=== PATIENT | male | born 1970 | race Caucasian/White ===

== ENCOUNTER 2019-03-31 22:47 | Emergency (ER) | payer SELFPAY ==
[2019-03-31 22:58] VITALS: TEMP 98.2; BMI 26.9
[2019-03-31] MEDS ORDERED: SODIUM CHLORIDE 0.9% 500 ML INFUS.BAG IV ONE (23:16)
[2019-03-31] MEDS ORDERED: ONDANSETRON 4 MG/2 ML VIAL IVPUSH ONE (23:16)
[2019-03-31] MEDS ORDERED: FAMOTIDINE 20 MG/50 ML IVPB 20 MG/50 ML MG IVPB ONE ×2 (23:16→23:31)
[2019-03-31] MEDS ORDERED: ACETAMINOPHEN 1000 MG/100 ML VIAL (NON FORMULARY) IVPB ONE (23:16)
[2019-03-31] MEDS ORDERED: ACETAMINOPHEN INJECTION 100 ML IVPB ONE (23:31)
[2019-03-31] MEDS ORDERED: ONDANSETRON 4 MG/2 ML VIAL ONE (23:31)
[2019-03-31 23:33] LABS: BASO % 0.2 % (0-2.0); EOS % 1.4 % (0-4.5); HEMATOCRIT 46.4 % (35.4-49); HEMOGLOBIN 15.3 GM/dL (11.7-16.9); LYMPH % 22.1 % (8-40); MEAN CELL VOLUME 88.1 fl (80-96); MEAN PLT VOLUME 7.7 fl (7.5-11.1); MONO % 12.3 % (3.8-10.2); PLATELET COUNT 253 K/MM3 (134-434); RBC 5.26 M/mm3 (4.00-5.60); RDW 13.7 % (11.9-15.9); WHITE BLOOD COUNT 6.3 K/mm3 (4.0-10.0)
--- NOTE | 2019-03-31 23:48 | PDOC ---
History of Present Illness - General Chief Complaint: Pain, Acute Stated Complaint: ABD PAIN Time Seen by Provider: 03/31/19 23:05 - History of Present Illness Initial Comments: Erickson White is a 48yo man with a PMH of DM, not currently on meds (stopped following with PMD) who presents with 2 days of frequent watery diarrhea, vomiting, and now diffuse abdominal pain. The vomiting and diarrhea both started yesterday, and he has been unable to keep anything down since then. He reports NBNB emesis and nonbloody stool. He is not aware of any sick contacts and has not traveled recently; he has not eaten anything unusual that he is aware of. He denies any fevers or chills but does note chronic low back pain that is particularly severe today. He additionally reports that he has burning chest pain, though he is unable to clarify it further. Mr White has been off his diabetes medications for 2-3 years due to problems with insurance, and he has not seen a doctor in this time. He does have a blood glucose meter at home; he reports that his glucose is normally between 90-150. Past History - Past Medical History Allergies/Adverse Reactions: Allergies Allergy/AdvReac Type Severity Reaction Status Date / Time No Known Allergies Allergy Verified 03/31/19 22:56 COPD: No Diabetes: Yes - Suicide/Smoking/Psychosocial Hx Smoking History: Never smoked Review of Systems - Review of Systems Comments:: General: No fevers, no chills, no weight or appetite change, no malaise HEENT: No changes in vision, no changes in hearing, no congestion, no sore throat CV: No chest pain, no palpitations, no LE edema Pulm: No SOB, no cough, no wheezing GI: See HPI : No frequency, no urgency, no dysuria Musc: No back pain, no joint swelling, no recent injury Skin: No rash, no lesions, no erythema Endo: No excessive thirst, no heat/cold intolerance Heme: No unusual bruising or bleeding, no swollen glands Neuro: No syncope, no numbness/tingling, no focal weakness Vasc: No claudication Psych: No recent change in mood, no SI or HI *Physical Exam - Vital Signs Last Vital Signs Temp Pulse Resp BP Pulse Ox 98.2 F 87 18 146/99 100 03/31/19 22:56 03/31/19 22:56 03/31/19 22:56 03/31/19 22:56 03/31/19 22:56 - Physical Exam Comments: General: Uncomfortable but in no acute distress HEENT: Atraumatic, PERRL, EOMI, MMM, voice normal, normal neck ROM Cards: RRR, no murmur appreciated Pulm: Comfortable on room air, clear to auscultation bilaterally Abd: Nondistended. Diffuse moderate TTP, voluntary guarding limits exam : No CVA tenderness Ext: Atraumatic. No LE edema. ROM intact. WWP Skin: Normal color, no rashes or lesions Neuro: A&Ox3, CN grossly intact, normal speech, motor/sensory grossly intact and symmetric. No focal deficits Psych: Mood appropriate to situation ED Treatment Course - LABORATORY CBC & Chemistry Diagram: 03/31/19 23:20 03/31/19 23:20 - RADIOLOGY Radiology Studies Ordered: Category Date Time Status ABDOMEN & PELVIS CT WITH CONTR [CT] Stat CT Scan 03/31/19 23:15 Ordered CHEST X-RAY PORTABLE* [RAD] Stat Radiology 03/31/19 23:15 Ordered Medical Decision Making - Medical Decision Making 03/31/19 23:17 Erickson White is a 48yo man with a PMH of DM, not currently on meds (stopped following with PMD) who presents with 2 days of frequent watery diarrhea, NBNB vomiting, and now diffuse abdominal pain. - Most likely viral gastroenteritis. No recent change in diet, travel suggesting more serious infection. No focal abdominal tenderness suggesting cholecystitis, appendicitis, or other surgical infection. - CBC, CMP, lipase - CT abd/pelvis w/ contrast given poor abdominal exam - IVF, zofran, famotidine, acetaminophen 04/01/19 00:04 - Pt now endorsing burning chest pain. Trop added 04/01/19 00:40 - Labs unremarkable - Improved following meds - Dispo depending on CT and PO challenge 04/01/19 01:51 - CT completed, reviewed. Stomach noted to have unclear mass; radiology report pending - Pt to be signed out to Dr Peña for the remainder of his ED care. Discussed with Dr Hernandez. Candy Ramirez PGY2 *DC/Admit/Observation/Transfer Diagnosis at time of Disposition: Nausea, vomiting, and diarrhea - Referrals Referrals: Jil Villanueva [Primary Care Provider] - - Patient Instructions - Post Discharge Activity
[2019-03-31 23:56] LABS: ALBUMIN 3.8 g/dl (3.4-5.0); ALK PHOS 72 U/L (45-117); ANION GAP 12 MMOL/L (8-16); BILIRUBIN,TOTAL 0.4 mg/dL (0.2-1); BLOOD UREA NITROGEN 16.5 mg/dL (7-18); CALCIUM 8.7 mg/dL (8.5-10.1); CHLORIDE 104 mmol/L (98-107); CO2 24 mmol/L (21-32); GLUCOSE,RANDOM 133 mg/dL (74-106); LIPASE 191 U/L (73-393); POTASSIUM 3.5 mmol/L (3.5-5.1); SGOT/AST 19 U/L (15-37); SGPT/ALT 26 U/L (13-61); SODIUM 140 mmol/L (136-145); TOT PROT 7.1 g/dl (6.4-8.2)
--- NOTE | 2019-04-01 00:15 | PDOC ---
Attending Attestation - Resident Resident Name: Candy Ramirez - ED Attending Attestation I have performed the following: I have examined & evaluated the patient, The case was reviewed & discussed with the resident, I agree w/resident's findings & plan, Exceptions are as noted
--- NOTE | 2019-04-01 01:18 | PDOC ---
Documentation entered by Kate Kee SCRIBE, acting as scribe for Muriel Hernandez DO. Muriel Hernandez DO: This documentation has been prepared by the Chilango crespo Xhesika, SCRIBE, under my direction and personally reviewed by me in its entirety. I confirm that the documentation accurately reflects all work, treatment, procedures, and medical decision making performed by me. 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 Patient states he endorses multiple episodes of nbnb vomiting and watery diarrhea. Patient states he has associated diffuse abdominal pain and burning sensation in his chest. Patient is unable to tolerate any foods/ liquids. Patient states he was fired from his job last week after he went to visit his uncle who has cancer at [facility]. Patient denies any sick contacts or recent travels. The patient denies chest pain, shortness of breath, headache and dizziness. Denies fever, chills, cough,and constipation. Denies dysuria, frequency, urgency and hematuria. Allergies: NKDA - Physicial Exam PE: 04/01/19 01:15 GENERAL: Awake, alert, and fully oriented, in no acute distress HEAD: No signs of trauma ENT: Oropharynx clear without exudates. Moist mucosa LUNGS: Breath sounds equal, clear to auscultation bilaterally. No wheezes, and no crackles HEART: Regular rate and rhythm, normal S1 and S2, no murmurs, rubs or gallops ABDOMEN: (+) mild diffuse abdominal tenderness. No guarding, no rebound. No masses EXTREMITIES: Normal range of motion, no edema. No clubbing or cyanosis. No cords, erythema, or tenderness NEUROLOGICAL: Cranial nerves II through XII grossly intact. SKIN: Warm, Dry, normal turgor, no rashes or lesions noted. - Medical Decision Making 04/01/19 01:16 I, Dr. Muriel Hernandez, DO, attest that this document has been prepared under my direction and personally reviewed by me in its entirety. I further attest, that it accurately reflects all work, treatment, procedures and medical decision -making performed by me. a/p: 48yo male with n/v/d x 2 days -mild diffuse abd pain -suspect gastroenteritis, however given hx of dm and profuse n/v/d and abd pain will send for ct to eval for poss colitis. -pt with mmm -pt does c/o cp -will add trop x 2 -ekg -will monitor and reassess 04/01/19 01:17 trop neg labs reviewed and stable pending ct read 04/01/19 01:59 ct shows fluid in colon and rectum consistent with diarrhea disease pt pending repeat trop and po challenge ct discussed with rads- tubular structure in stomach is pasta 04/01/19 02:02 pt signed out pending repeat trop Heart Score/ECG Review - ECG Intrepretation Comment:: 04/01/19 01:20 sinus at 92, nl axis, nl interval, no acute st/t wave findings
[2019-04-01 02:04] LABS: URINE APPEARANCE CLEAR; URINE BILIRUBIN NEGATIVE (NEGATIVE); URINE COLOR YELLOW; URINE GLUCOSE (UA) NEGATIVE (NEGATIVE); URINE KETONE NEGATIVE (NEGATIVE); URINE LEUK ESTERASE NEGATIVE (NEGATIVE); URINE NITRITE NEGATIVE (NEGATIVE); URINE PROTEIN NEGATIVE (NEGATIVE); URINE UROBILINOGEN 0.2 mg/dL (0.2-1.0)
[2019-04-01] MEDS ORDERED: MAG HYDROX/AL HYDROX/SIMETH -MYLANTA- ORAL SUSPENSION PO ONE (02:44)
[2019-04-01] MEDS ORDERED: MAG HYDROX/AL HYDROX/SIMETH 30 ML UNIT-DOSE CUP ONE (03:06)
--- NOTE | 2019-04-01 03:50 | PDOC ---
*Physical Exam - Vital Signs Last Vital Signs Temp Pulse Resp BP Pulse Ox 98.2 F 87 18 146/99 100 03/31/19 22:56 03/31/19 22:56 03/31/19 22:56 03/31/19 22:56 03/31/19 22:56 - Physical Exam General Appearance: Yes: Nourished, Appropriately Dressed. No: Apparent Distress HEENT: positive: Normal ENT Inspection, Normal Voice Neck: positive: Supple Respiratory/Chest: positive: Lungs Clear Cardiovascular: positive: Regular Rhythm, Regular Rate Vascular Pulses: Dorsalis-Pedis (R): 2+, Doralis-Pedis (L): 2+ Gastrointestinal/Abdominal: positive: Soft. negative: Tender Rectal Exam: positive: deferred Lymphatic: negative: Adenopathy Musculoskeletal: positive: Normal Inspection. negative: CVA Tenderness Extremity: positive: Normal Capillary Refill, Normal Inspection, Normal Range of Motion Integumentary: positive: Normal Color, Dry, Warm Neurologic: positive: Alert, Normal Mood/Affect, Normal Response ED Treatment Course - LABORATORY CBC & Chemistry Diagram: 03/31/19 23:20 03/31/19 23:20 - ADDITIONAL ORDERS Additional order review: Laboratory Results 04/01/19 04/01/19 03/31/19 02:35 01:55 23:20 Sodium 140 Potassium 3.5 Chloride 104 Carbon Dioxide 24 Anion Gap 12 BUN 16.5 Creatinine 1.0 Est GFR (CKD-EPI)AfAm 104.15 Est GFR (CKD-EPI)NonAf 89.86 Random Glucose 133 H Calcium 8.7 Total Bilirubin 0.4 AST 19 ALT 26 Alkaline Phosphatase 72 Creatine Kinase 66 Troponin I < 0.02 < 0.02 Total Protein 7.1 Albumin 3.8 Lipase 191 Urine Color Yellow Urine Appearance Clear Urine pH 5.0 Ur Specific [place] >= 1.099 H Urine Protein Negative Urine Glucose (UA) Negative Urine Ketones Negative Urine Blood Negative Urine Nitrite Negative Urine Bilirubin Negative Urine Urobilinogen 0.2 Ur Leukocyte Esterase Negative 03/31/19 23:20 RBC 5.26 MCV 88.1 MCHC 33.0 RDW 13.7 MPV 7.7 Neutrophils % 64.0 Lymphocytes % 22.1 Monocytes % 12.3 H Eosinophils % 1.4 Basophils % 0.2 - Medications Given in the ED: ED Medications Discontinued Medications Generic Name Dose Route Start Last Admin Trade Name Freq PRN Reason Stop Dose Admin Acetaminophen 1,000 mg 03/31/19 23:16 03/31/19 23:39 Ofirmev Injection - IVPB 03/31/19 23:17 1,000 mg ONCE ONE Administration Al Hydroxide/Mg Hydroxide 30 ml 04/01/19 02:44 04/01/19 03:13 Mylanta Suspension - PO 04/01/19 02:45 30 ml ONCE ONE Administration Famotidine/Sodium Chloride 20 mg in 50 mls @ 100 mls/hr 03/31/19 23:16 23:39 Pepcid 20 Mg Premixed Ivpb - IVPB 03/31/19 23:45 100 mls/hr ONCE ONE Administration Ondansetron HCl 4 mg 03/31/19 23:16 03/31/19 23:39 Zofran Injection IVPUSH 03/31/19 23:17 4 mg ONCE ONE Administration Sodium Chloride 1,000 ml 03/31/19 23:16 03/31/19 23:39 Normal Saline - IV 03/31/19 23:17 1,000 ml ONCE ONE Administration Medical Decision Making - Medical Decision Making Patient signed out to me pending 2nd trop, PO challenge and re-assessment 2nd Trop: Negative PO challenge: Successful - patient ate a turkey sandwich Re-assessment: Patient feels well and requests to be discharged. He has no present complaints Dispo: Home with PCP FU *DC/Admit/Observation/Transfer Diagnosis at time of Disposition: Nausea, vomiting, and diarrhea - Discharge Dispostion Disposition: HOME Condition at time of disposition: Improved Decision to Admit order: No - Referrals Referrals: Jil Villanueva [Primary Care Provider] - - Patient Instructions Printed Discharge Instructions: Acute Abdominal Pain Additional Instructions: Please make sure to read the attached abdominal pain packet. Come back to the ER with any new or worsening concerns. Please make sure to schedule a follow up with your primary care physician in the next 3 to 5 days. Print Language: NIGERIAN - Post Discharge Activity
[2019-04-01 04:24] VITALS: BP 144/93; PULSE 80
--- NOTE | 2019-04-01 14:06 | EKG ---
Test Reason : Blood Pressure : / mmHG Vent. Rate : 092 BPM Atrial Rate : 092 BPM P-R Int : 134 ms QRS Dur : 096 ms QT Int : 350 ms P-R-T Axes : 051 054 036 degrees QTc Int : 432 ms NORMAL SINUS RHYTHM NONSPECIFIC ST ABNORMALITY NO PREVIOUS ECGS AVAILABLE Confirmed by AILYN COBOS MD ([id number]) on 04/01/2019 2:05:48 PM Referred By: Confirmed By:AILYN COBOS MD
== END 2019-04-01 04:20 | disposition home or self-care (01) ==
LOC: JER 22:47
PROC: 3E0337Z Introduction of Electrolytic and Water Balance Substance into Peripheral Vein, Percutaneous Approach (ICD-10-PCS; principal; 2019-03-31)
PROC: 3E033GC Introduction of Other Therapeutic Substance into Peripheral Vein, Percutaneous Approach (ICD-10-PCS; 2019-03-31)
PROC: 3E033NZ Introduction of Analgesics, Hypnotics, Sedatives into Peripheral Vein, Percutaneous Approach (ICD-10-PCS; 2019-03-31)
DX: R11.2 Nausea with vomiting, unspecified (principal); R19.7 Diarrhea, unspecified; E11.9 Type 2 diabetes mellitus without complications
CPT/HCPCS: 36415; 71045-TC-FY; 74177-TC; 80053; 81003; 82550; 83690; 84484; 85025; 93005; 93010; 99283-25; J0131

== ENCOUNTER 2022-11-06 18:09 | Emergency (ER) | payer OTHER ==
[2022-11-06] MEDS ORDERED: ACETAMINOPHEN 1000 MG/100 ML BAG IVPB ONE (18:28)
[2022-11-06] MEDS ORDERED: ONDANSETRON 4 MG/2 ML VIAL IVPUSH ONE (18:28)
[2022-11-06] MEDS ORDERED: SODIUM CHLORIDE 0.9% 500 ML INFUS.BAG IV ONE (18:28)
[2022-11-06] MEDS ORDERED: ACETAMINOPHEN INJECTION 100 ML IVPB ONE (18:39)
[2022-11-06] MEDS ORDERED: ONDANSETRON 4 MG/2 ML VIAL ONE (18:40)
[2022-11-06 18:46] VITALS: RESP 20; TEMP 99.2; BMI 23.3
[2022-11-06 20:30] LABS: BASO % 0.3 % (0-2.0); EOS % 1.3 % (0-4.5); HEMATOCRIT 48.1 % (35.4-49); HEMOGLOBIN 16.1 GM/dL (11.7-16.9); LYMPH % 7.8 % (8-40); MCH 28.5 pg (25.7-33.7); MCHC 33.4 g/dl (32.0-35.9); MEAN CELL VOLUME 85.5 fl (80-96); MEAN PLT VOLUME 8.1 fl (7.5-11.1); MONO % 8.9 % (3.8-10.2); NEUT % 81.7 % (42.8-82.8); PLATELET COUNT 349 10^3/uL (134-434); RBC 5.63 M/mm3 (4.00-5.60); RDW 13.6 % (11.9-15.9); WHITE BLOOD COUNT 8.3 K/mm3 (4.0-10.0)
[2022-11-06 20:37] LABS: INR 1.13 (0.83-1.09); PROTHROMBIN TIME (PATIENT) 13.1 SEC (9.7-13.0)
[2022-11-06 20:40] LABS: ACTIVATED PTT 30.2 SECONDS (25.2-36.5)
[2022-11-06 21:13] LABS: ALBUMIN 4.2 g/dl (3.4-5.0); BLOOD UREA NITROGEN 15.1 mg/dL (7-18); MAGNESIUM 2.3 mg/dL (1.8-2.4)
[2022-11-06 21:16] LABS: CREATININE 1.2 mg/dL (0.55-1.3); PHOSPHOROUS 2.7 mg/dL (2.5-4.9)
[2022-11-06 21:18] LABS: BILIRUBIN,TOTAL 0.6 mg/dL (0.2-1); TOT PROT 8.3 g/dl (6.4-8.2)
[2022-11-06 22:30] LABS: PH,URINE 5.5 (5.0-8.0); URINE APPEARANCE CLEAR; URINE BILIRUBIN NEGATIVE (NEGATIVE); URINE COLOR YELLOW; URINE GLUCOSE (UA) 2+ (NEGATIVE); URINE KETONE NEGATIVE (NEGATIVE); URINE LEUK ESTERASE NEGATIVE (NEGATIVE); URINE NITRITE NEGATIVE (NEGATIVE); URINE PROTEIN NEGATIVE (NEGATIVE); URINE UROBILINOGEN 0.2 mg/dL (0.2-1.0)
[2022-11-06 23:28] VITALS: BP 118/70; PULSE 94
== END 2022-11-06 23:35 | disposition home or self-care (01) ==
LOC: JER 18:09
PROC: 3E033GC Introduction of Other Therapeutic Substance into Peripheral Vein, Percutaneous Approach (ICD-10-PCS; principal; 2022-11-06)
DX: R53.1 Weakness (principal); R19.7 Diarrhea, unspecified; R10.84 Generalized abdominal pain; R11.0 Nausea; R42 Dizziness and giddiness; R35.0 Frequency of micturition; R68.2 Dry mouth, unspecified; Z20.822 Contact with and (suspected) exposure to COVID-19
CPT/HCPCS: 0241U-QW; 36415; 74177-TC; 80053; 81003; 82962; 83690; 83735; 84100; 84484; 85025; 85610; 85730; 87086; 93005; 93010; 99285-25; Q9967